=== PATIENT | male | born 1950 | race Caucasian/White ===

== ENCOUNTER → 2022-09-01 | Outpatient (CLI) | payer OTHER ==
[~2022-09-01] MED LIST: BENA10TA15 PO; CLOP75TA70 PO; LABE100T4 PO
== END | disposition home or self-care (01) ==
LOC: Rad HDHVI 08:02
PROVIDERS: ATTEND Internal Medicine Cardiovascular Disease
DX: I35.8 Other nonrheumatic aortic valve disorders (principal); I11.9 Hypertensive heart disease without heart failure
CPT/HCPCS: 93306

== ENCOUNTER → 2022-09-22 | Outpatient (CLI) | payer OTHER ==
[~2022-09-22] VITALS: Ht 167.6 cm; Wt 76.2 kg
[~2022-09-22] MED LIST changes: +BENA-19 PO; -BENA10TA15 PO
== END | disposition home or self-care (01) ==
LOC: Rad HDHVI 08:10
PROVIDERS: ATTEND Internal Medicine Cardiovascular Disease
DX: I44.0 Atrioventricular block, first degree (principal); I34.0 Nonrheumatic mitral (valve) insufficiency; I20.9 Angina pectoris, unspecified; R06.02 Shortness of breath; I10 Essential (primary) hypertension; Z82.49 Family history of ischemic heart disease and other diseases of the circulatory system
CPT/HCPCS: 78452; 93017; 96374; A9500

== ENCOUNTER → 2023-12-06 | Outpatient (CLI) | payer OTHER ==
[~2023-12-06] MED LIST changes: -BENA-19 PO; +BENA10TA90 PO; -LABE100T4 PO; +LABE100T7 PO
== END | disposition home or self-care (01) ==
LOC: Rad HDHVI 08:03
PROVIDERS: ATTEND Internal Medicine Cardiovascular Disease
DX: R06.02 Shortness of breath (principal); R42 Dizziness and giddiness
CPT/HCPCS: 93306

== ENCOUNTER → 2023-12-12 | Outpatient (CLI) | payer OTHER ==
[~2023-12-12] VITALS: Ht 172.7 cm; Wt 78.5 kg
== END | disposition home or self-care (01) ==
LOC: Rad HDHVI 09:22
PROVIDERS: ATTEND Internal Medicine Cardiovascular Disease
DX: I35.0 Nonrheumatic aortic (valve) stenosis (principal); I10 Essential (primary) hypertension; I44.0 Atrioventricular block, first degree; I25.118 Atherosclerotic heart disease of native coronary artery with other forms of angina pectoris; R06.02 Shortness of breath
CPT/HCPCS: 78452; 93017; 96374; A9500

== ENCOUNTER 2024-10-02 04:25 | Emergency (ER) | payer OTHER, MEDICAID ==
[~2024-10-02] VITALS: Ht 172.7 cm; Wt 78.3 kg
--- NOTE | 2024-10-02 04:43 | ED.PDOC ---
Musculoskeletal HPI Comments 74-year-old male presents to ER with complaints of left knee pain x1 day. Patient reports that he tripped over his dog and landed on his left knee onto cement last night and since been experiencing 4/10 pain with associated swelling to left knee. Denies use of medications for current symptoms and presents to ER ambulatory on arrival, with steady gait, in no distress. Denies left hip pain, left tib/fib pain, numbness/tingling or any further symptoms/complaints Time Seen by MD: 04:41 Primary Care Provider: MABLE Reviewed Notes: Nurses Notes, Medications, Allergies Allergies: Coded Allergies: Sulfa Drugs (Verified Allergy, 03/24/13) Home Meds Reported Medications Clopidogrel Bisulfate (CLOPIDOGREL) 75 Mg Tab, 75 MG PO, TAB 08/11/13 Benazepril Hcl (Benazepril Hcl) 10 Mg Tab, 10 MG PO DAILY for 30 Days, MG 08/11/13 Labetalol Hcl (Labetalol Hcl) 100 Mg Tab, 100 MG PO for 30 Days, MG 08/11/13 Information Source: Patient Past Medical History PAST MEDICAL HISTORY: HTN, Liver Past Medical History (Other): Aortic aneurysm Surgical History: PTCA Family History Family History: Unobtainable Social History Smoker: Non-Smoker Alcohol: Denies ETOH Use Drugs: Denies Drug Use Lives In: Home Constitutional: denies: chills, diaphoresis, fatigue, fever, malaise, sweats, weakness, others EENTM: denies: blurred vision, double vision, ear bleeding, ear discharge, ear drainage, ear pain, ear ringing, eye pain, eye redness, hearing loss, mouth pain, mouth swelling, nasal discharge, nose bleeding, nose congestion, nose pain, photophobia, tearing, throat pain, throat swelling, voice changes, others Respiratory: denies: cough, hemoptysis, orthopnea, SOB at rest, shortness of breath, SOB with excertion, stridor, wheezing, others Cardiovascular: denies: chest pain, dizzy spells, diaphoresis, Dyspnea on exertion, edema, irregular heart beat, left arm pain, lightheadedness, pal pitations, PND, syncope, others Gastrointestinal: denies: abdomen distended, abdominal pain, blood streaked bowels, constipated, diarrhea, dysphagia, difficulty swallowing, hematemesis, melena, nausea, poor appetite, poor fluid intake, rectal bleeding, rectal pain, vomiting, others Genitourinary: denies: burning, dysuria, flank pain, frequency, hematuria, incontinence, penile discharge, penile sore, pain, testicle pain, testicle swelling, urgency, others Neurological: denies: dizziness, fainting, headache, left sided numbness, left sided weakness, numbness, paresthesia, pre-existing deficit, right sided numbness, right sided weakness, seizure, speech problems, tingling, tremors, weakness, others Musculoskeletal: reports: others (As stated in HPI) Integumetry: reports: others (As stated in HPI) Allergic/Immunocompromised: denies: Difficulty Healing, Frequent Infections, Hives, Itching, others Hematologic/Lymphatic: denies: anemia, blood clots, easy bleeding, easy bruising, swollen glands, others Endocrine: denies: excessive hunger, excessive sweating, excessive thirst, excessive urination, flushing, intolerance to cold, intolerance to heat, unexplained weight gain, unexplained weight loss, others Psychiatric: denies: anxiety, bipolar disorder, depression, hopeless, panic disorder, schizophrenia, sleepless, suicidal, others Physical Exam General Appearance: No Apparent Distress HEENT: PERRL/EOMI Neck: Full Range of Motion, Non-Tender, Normal Respiratory: Chest Non-Tender, Lungs Clear, No Accessory Muscle Use, No Respiratory Distress, Normal Breath Sounds Cardiovascular: No Murmur, No Gallop, Regular Rate/Rhythm Breast Exam: Deferred Gastrointestinal: NOT DONE Genitalia: Deferred Pelvic: Deferred Rectal: Deferred Extremities: No calf tenderness, Normal capillary refill, Normal range of motion Musculoskeletal : Extremity Location: Knee (TTP/mild swelling/ecchymosis noted to left ant erior knee. No deformity/further skin changes noted. Full ROM to left knee appreciated. Pulses intact. Steady gait noted) Neurologic: Alert, No Motor Deficits, Normal Affect, Normal Mood, No Sensory Deficits Cerebellar Function: Normal Reflexes: Normal Skin: Dry, Normal Color, Warm Peripheral Pulses: 2+ femoral (R), 2+ femoral (L), 2+ dorsalis pedis (R), 2+ dorsalis pedis (L), 2+ Radial (R), 2+ Radial (L), 2+ Brachial (R), 2+ Brachial (L) Lymphatic: No Adenopathy Was a procedure done? Was a procedure done?: No Sedation Sedation?: No Differential Diagnosis EXT Differential Diagnosis: Fracture, Dislocation, Neurovascular injury X-Ray, Labs, Meds, VS Vital Signs Date Time Temp Pulse Resp B/P (MAP) Pulse Ox O2 Delivery O2 Flow Rate FiO2 10/02/24 04:43 97.7 69 17 113/75 (88) 95 97.7 PATIENT: CLARITA ROSAACCT: [id number]: [id number] : 1950 LOC: ER ROOM / BED: / AGE / SEX: 74 / M ADM STATUS: REG ER SERVICE 0 ORDERING PHYSICIAN: REBEKAH WISEMAN PROCEDURE(s): LKNE3 - L KNEE 3V XRAY REASON: left knee pain ORDER NUMBER(s): [id number], ACCESSION NUMBER(s): [id number] CLINICAL INDICATION: left knee pain TECHNIQUE: XY L KNEE 3V XRAY Comparison: None FINDINGS/IMPRESSION: : There is no evidence of acute fracture or dislocation. Moderate prepatellar soft-tissue swelling. ATED BY: MORENO SEAY MD DICTATED DATE/TIME: 10/02/24515 SIGNED BY: MORENO SEAY MD SIGNED DATE/TIME: 10/02/24515 CC: Left knee x-ray reviewed Patient neurovascularly intact Advised on rest/no strenuous activity, elevation and alternate ice on/off as needed for pain/swelling Left knee immobilizer applied Advised to follow up with PCP an in 1-2 days Patient verbalized understanding and agreeable with current plan of care Advised to return to ER immediately if symptoms worsen Images Reviewed?: Images reviewed and evaluated by me Time of 1ST Reevaluation: 04:50 Reevaluation 1ST: N/A Patient Education/Counseling: Diagnosis, Treatment, Prognosis, Need For Follow Up Family Education/Counseling: No Family Present Departure 1 Departure Time of Disposition: 05:22 Impression: Primary Impression: Contusion of left knee Qualified Codes: S80.02XA - Contusion of left knee, initial encounter Disposition: HOME / SELF CARE / HOMELESS Condition: Stable Discharged With: Friend Critical Care Note Critical Care Time?: No Stability Stability form required: No Heart Score Heart Score: Heart Score Response (Comments) Value History N/A 0 EKG N/A 0 Age N/A 0 Risk Factors N/A 0 Troponin N/A 0 Total 0 REBEKAH WISEMAN Oct 02, 2024 04:43 LUIS MI MD Oct 02, 2024 05:37
--- NOTE | 2024-10-02 05:18 | DVH ---
CLINICAL INDICATION: left knee pain TECHNIQUE: XY L KNEE 3V XRAY Comparison: None FINDINGS/IMPRESSION: : There is no evidence of acute fracture or dislocation. Moderate prepatellar soft-tissue swelling.
[2024-10-02 06:08] VITALS: BP 113/66; PULSE 66; RESP 19; TEMP 98.3
[2024-10-02 06:10] VITALS: O2SAT 99
== END 2024-10-02 06:12 | disposition home or self-care (01) ==
LOC: ER 04:25
DX: S80.02XA Contusion of left knee, initial encounter (principal); I10 Essential (primary) hypertension; Z79.899 Other long term (current) drug therapy; Z98.890 Other specified postprocedural states; Z88.2 Allergy status to sulfonamides; W01.0XXA Fall on same level from slipping, tripping and stumbling without subsequent striking against object, initial encounter; Y93.I9 Activity, other involving external motion; Y92.89 Other specified places as the place of occurrence of the external cause; Y99.8 Other external cause status
CPT/HCPCS: 29505; 73562